=== PATIENT | female | born 1955 | race Two or more races ===

== ENCOUNTER 2017-10-17 23:18 | Emergency (ER) | payer OTHER ==
[~2017-10-17] VITALS: Ht 160 cm; Wt 72.6 kg
[2017-10-18 00:23] VITALS: BP 155/89
== END 2017-10-18 00:59 | disposition home or self-care (01) ==
LOC: ER 23:27
DX: G51.0 Bell's palsy (principal); I10 Essential (primary) hypertension
CPT/HCPCS: 99283; A4606; Z7610

== ENCOUNTER 2022-10-09 10:24 | Emergency (ER) | payer MEDICARE, OTHER ==
[~2022-10-09] VITALS: Ht 152.4 cm; Wt 74.8 kg
[2022-10-09 10:35] VITALS: BP 111/70
[2022-10-09] MEDS ORDERED: PHEN-705 PO (10:45)
[2022-10-09] MEDS ORDERED: CEPH500C2 PO (10:45)
--- NOTE | 2022-10-09 10:53 | NUR ---
Patient discharged to home in stable condition. Written and verbal after care instructions given. Patient verbalizes understanding of instruction.
[2022-10-09 11:33] LABS: BILIRUBIN,URINE 1+ (NEGATIVE); COLOR,URINE DARK YELLOW (YELLOW); LEUKOCYTE ESTERASE ,URINE 2+ (NEGATIVE); NITRITE, URINE POSITIVE (NEGATIVE); PH,URINE 6.5 (5.0-8.0); PROTEIN,URINE 2+ mg/dl (NEGATIVE); UGLUCOSE NEGATIVE (NEGATIVE); UROBILINOGEN,URINE 0.2 EU/dL (0.2)
[2022-10-09 12:53] LABS: BACTERIA,URINE Many /HPF (None Seen); RBC,URINE TOO NUMEROUS TO COUN /HPF (0-2); WBC,URINE 21-50 /HPF (0-3)
== END 2022-10-09 10:53 | disposition home or self-care (01) ==
LOC: ER 10:35
DX: N39.0 Urinary tract infection, site not specified (principal); I10 Essential (primary) hypertension; E78.5 Hyperlipidemia, unspecified; E11.9 Type 2 diabetes mellitus without complications; Z79.899 Other long term (current) drug therapy
CPT/HCPCS: 81001; 87086-TC